=== PATIENT | male | born 1975 | race Native Hawaiian/Other Pacific Islander ===

== ENCOUNTER 2021-09-19 09:00 | Emergency (ER) | payer OTHER ==
[~2021-09-19] VITALS: Ht 167.6 cm; Wt 117.9 kg
[2021-09-19 09:09] VITALS: TEMP 98
[2021-09-19 09:27] LABS: PLATELET COUNT 351 K/uL (142-355)
[2021-09-19 09:36] LABS: POTASSIUM 4.2 mmol/L (3.6-5.2)
[2021-09-19 10:06] LABS: PARTIAL THROMBOPLASTIN TIME 26.6 SECONDS (24.5-33.6)
[2021-09-19 10:44] VITALS: BP 134/95
== END 2021-09-19 10:52 | disposition home or self-care (01) ==
LOC: ED 09:00
PROVIDERS: Emergency Medicine
DX: I10 Essential (primary) hypertension (principal); Z86.73 Personal history of transient ischemic attack (TIA), and cerebral infarction without residual deficits; F17.210 Nicotine dependence, cigarettes, uncomplicated
CPT/HCPCS: 36415; 80053; 82550; 83880; 84484; 85027; 85379; 85610; 85730; 93005; 96374; 99284; J0360